=== PATIENT | female | born 1965 | race African-American/Black ===

== ENCOUNTER 2016-10-02 16:31 | Emergency (ER) | payer OTHER ==
[~2016-10-02] VITALS: Ht 165.1 cm; Wt 98.4 kg
[~2016-10-02 16:31] MED LIST: FIORICET 325 MG1 TAB PO; LEVOTHYROXIN0.075 M1 PO; NATURAL IRON65 MG PO; PERCOCET 325 MG1 TAB PO; PROAIR HFA0.09 MG/Ac INH; REGLAN10 MG PO; VIBRAMYCIN 100100 MG PO
--- NOTE | 2016-10-02 17:55 | ED UPPER/LOWER EXTREMITY COMPL ---
History of Present Illness General Chief Complaint: Upper Extremity Problem Stated Complaint: RIGHT ELBOW PAIN Source: patient Exam Limitations: no limitations Vital Signs & Intake/Output Vital Signs & Intake/Output Vital Signs Date Time Temp Pulse Resp B/P Pulse O2 O2 Flow FiO2 Ox Delivery Rate 10/02 1641 97.9 67 15 160/81 99 Room Air Allergies Coded Allergies: MDX - Fragrance (FRAGRANCE) (CAN TRIGGER ASTHMA 06/26/15) Uncoded Allergies: MOLD DUST MITES (05/16/11) Reconcile Medications Acetaminophen/Butalbital/Caf (Fioricet 325 MG-50 MG-40 MG) 1 TAB TAB 1-2 TAB PO Q6H PRN HEADACHE Albuterol Sulfate (Proair Hfa) 0.09 MG/Actuation ELEAZAR 2 PUFF INH PRN ASTHMA ( Reported) FERROUS SULFATE (IRON) 325 MG (65 MG IRON) TABLET 1 TAB PO DAILY ANEMIA ( Reported) Levothyroxine Sodium 75 MCG TABLET 1 TAB PO DAILY AC THYROID (Reported) METOCLOPRAMIDE HCL (Reglan) 10 MG TAB 1 TAB PO Q6H PRN HEADACHE/NAUSEA Naproxen (Naprosyn) 500 MG TABLET 1 TAB PO BID PRN pain and inflammation Triage Note: PT TO ED FOR R ELBOW PAIN, DENIES ANY INJURY OR TRAUMA, DOES NOT APPEAR RED OR SWOLLEN IN TRIAGE, REPORTING PAIN ON NORMAL ROM, +DISTAL PULSES. Triage Nurses Notes Reviewed? yes HPI: This patient is a 50-year-old female who presents to the emergency department today for evaluation of right elbow pain. The patient reported that the pain started today at approximately 11:30 in the morning. The patient reported that the pain gets up to an 8 out of 10, is throbbing, and nonradiating. She did report that her hand and forearm feel numb. She denied any tingling. 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 She reported that she went to get somebody a high 5 and felt like her elbow, "jammed." The patient reported the pain is worse with certain movements. She reported that she did take an [id number], "gelcap," with no relief of her symptoms. She denied any shoulder or wrist pain. The patient denied any trauma to the area. (SAUNDRA WALL,CHRIS) Past History Travel History Traveled to [place] past 21 day No Medical History Any Pertinent Medical History? 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 No (CHRIS ARGUELLO PA-C) Review of Systems Review of Systems Constitutional: Reports: no symptoms. EENTM: Reports: no symptoms. Respiratory: Reports: see HPI. Cardiovascular: Reports: no symptoms. Gastrointestinal/Abdominal: Reports: no symptoms. Musculoskeletal: Reports: see HPI. Skin: Reports: no symptoms. Neurological/Psychological: Reports: see HPI. All Other Systems: Reviewed and Negative (CHRIS ARGUELLO PA-C) Physical Exam Physical Exam General Appearance: well developed/nourished, no apparent distress, alert, awake Comments: Well-developed well-nourished person in no acute distress HEENT: Head normocephalic, moist mucous membranes Neck: Supple, no lymphadenopathy Back: Normal Gait Respiratory: No respiratory distress. Speaking in full sentences Right upper extremity: No effusions overlying erythema or ecchymosis to the joint spaces. Full range of motion of the shoulder, elbow, and wrist. Pain elicited with elbow extension. Tenderness to palpation over the lateral epicondyle. Pain when resisting supination. Pain with resisted wrist extension. Brachial and radial pulses 2+ and strong. Neuro: Alert and oriented x3 Psych: Mood affect normal, normal memory normal judgment. Skin: Warm and dry, no rash on exposed skin (CHRIS ARGUELLO PA-C) Progress Differential Diagnosis: cellulitis, compartment syndrome, contusion, dislocation , DVT, fracture, gout, septic arthritis, sprain, tendon injury, EPICONDYLITIS Plan of Care: Current Medications Sig/Dann Start time Last Medication Dose Stop Time Status Admin Ketorolac 60 MG ONCE ONE 10/02 1800 CAN Tromethamine 10/02 1801 (Toradol) Diagnostic Imaging: Viewed by Me: Radiology Read. Discussed w/RAD: Radiology Read. Radiology Impression: PATIENT: MARYCRUZ MCMULLEN PRESENT AGE: 50 PATIENT ACCOUNT NO: [id number] : 63 LOCATION: [facility] ORDERING PHYSICIAN: CHRIS ARGUELLO PA-C SERVICE DATE: 10/02/16 EXAM TYPE: RAD - XRY-ELBOW 3 OR MORE VIEWS, R EXAMINATION: XR ELBOW, RIGHT CLINICAL INFORMATION: Pain. Assess for fracture. COMPARISON: None TECHNIQUE: AP, lateral, and 2 oblique views of the right elbow. FINDINGS: There is normal alignment of the bones. There is a well-corticated small bony fragment adjacent to the medial epicondyle, most consistent with sequelae of old trauma. There is slight irregularity of the tip of the olecranon, consistent with spurring. The soft tissues are unremarkable, and there are no radiopaque foreign bodies. IMPRESSION : 1. There are no acute fractures or subluxations. 2. Suggestion of old traumatic changes along the medial. DICTATED BY: MARIIA BARRERA MD DATE/TIME DICTATED:10/02/161848 ELECTROFORMER:SHERRY DATE/TIME TRANSCRIBED:1848 CONFIDENTIAL, DO NOT COPY WITHOUT APPROPRIATE AUTHORIZATION. < Electronically signed in Other Vendor System> SIGNED BY: MARIIA BARRERA MD 1902 (CHRIS ARGUELLO PA-C) Departure Departure Disposition: HOME OR SELF CARE Condition: Stable Clinical Impression Primary Impression: Lateral epicondylitis Qualifiers: Laterality: right Qualified Code: M77.11 - Lateral epicondylitis, right elbow Referrals: KASI SAUNDERS,HERO Guillaume (PCP/Family) LISA SAUNDERS,ANGELA Balbuena Additional Instructions: Take medication for pain as prescribed. Use brace provided to you. Call the orthopedic physician whose information has been provided to you in this packet for further evaluation. Avoid any overuse of your elbow/wrist. Return for any worsening symptoms or concerns. Departure Forms: Customer Survey General Discharge Information Prescriptions: Current Visit Scripts Naproxen (Naprosyn) 1 TAB PO BID PRN pain and inflammation #20 TAB (CHRIS ARGUELLO PA-C) PA/WEB SUPPORT ENGINEER Co-Sign Statement Statement: ED Attending supervision documentation- [] I saw and evaluated the patient. I have also reviewed all the pertinent lab results and diagnostic results. I agree with the findings and the plan of care as documented in the PA's/WEB SUPPORT ENGINEER's documentation. [X] I have reviewed the ED Record and agree with the PA's/WEB SUPPORT ENGINEER's documentation. [] Additions or exceptions (if any) to the PAs/WEB SUPPORT ENGINEER's note and plan are summarized below: [] (NATALIO SAUNDERS,OVIDIO)
--- NOTE | 2016-10-02 19:03 | RADIOLOGY REPORT ---
EXAMINATION: XR ELBOW, RIGHT CLINICAL INFORMATION: Pain. Assess for fracture. COMPARISON: None TECHNIQUE: AP, lateral, and 2 oblique views of the right elbow. FINDINGS: There is normal alignment of the bones. There is a well-corticated small bony fragment adjacent to the medial epicondyle, most consistent with sequelae of old trauma. There is slight irregularity of the tip of the olecranon, consistent with spurring. The soft tissues are unremarkable, and there are no radiopaque foreign bodies. IMPRESSION: 1. There are no acute fractures or subluxations. 2. Suggestion of old traumatic changes along the medial.
[2016-10-02] MEDS ORDERED: NAPROSYN500 M1 PO (19:08)
[2016-10-02 19:28] VITALS: BP 158/80
== END 2016-10-02 19:29 ==
LOC: ERH 16:31
DX: M77.11 Lateral epicondylitis, right elbow (principal)
CPT/HCPCS: 73080-RT; J1885